=== PATIENT | male | born 1960 | race Caucasian/White ===

== ENCOUNTER 2020-09-13 12:27 | Inpatient (IN) | payer MEDICAID ==
[~2020-09-13] VITALS: Ht 177.8 cm; Wt 212.8 kg
[2020-09-13] MEDS ORDERED: DEXAMETHASONE 4 MG/ML, 1ML IVPush ONE (13:00)
[2020-09-13] MEDS ORDERED: SUCCINYLCHOLINE 20 MG/ML, 10ML IVPush ONE (13:00)
[2020-09-13] MEDS ORDERED: CEFTRIAXONE PMX 1GM/50ML 50 ML IVPB ONE (13:00)
[2020-09-13] MEDS ORDERED: ETOMIDATE 40 MG/20 ML IVPush ONE (13:00)
[2020-09-13] MEDS: PROPOFOL 100 ML IV PRN ×5 (13:02→22:01)
[2020-09-13] MEDS ORDERED: DEXAMETHASONE 4 MG/ML, 5ML ONE (13:03)
[2020-09-13] MEDS ORDERED: CEFTRIAXONE PMX 1GM/50ML 50 ML ONE ×2 (13:03→15:02)
[2020-09-13] MEDS: NOREPINEPHRINE 8 MG in SODIUM CHLORIDE 0.9% 242 ML IV PRN ×3 (13:13→20:09)
[2020-09-13 13:20] LABS: BASOPHILS % (AUTO) 1 % (0-1); EOSINOPHILS % (AUTO) 0 % (1-7); LYMPHOCYTES % (AUTO) 20 % (22-44); MEAN CORPUSCULAR HGB CONC 33.7 g/dL (33.2-36.2); MEAN PLATELET VOLUME 9.7 fL (7.4-10.4); MONOCYTES % (AUTO) 8 % (2-9); NEUTROPHILS % (AUTO) 72 % (42-75); PLATELET COUNT 189 x10^3/uL (130-400); RED BLOOD COUNT 5.33 x10^6/uL (4.38-5.82); RED CELL DISTRIBUTION WIDTH 16.8 % (9.4-14.8)
[2020-09-13 13:23] LABS: MD NO
[2020-09-13] MEDS ORDERED: NYST1000 PO (13:24)
[2020-09-13] MEDS ORDERED: FURO-93 PO (13:27)
[2020-09-13] MEDS ORDERED: PIOG15TA69 PO (13:27)
[2020-09-13] MEDS ORDERED: ALBU0.63 NEB (13:27)
[2020-09-13] MEDS ORDERED: INSU100C5 SQ-INSULIN (13:27)
[2020-09-13] MEDS ORDERED: TRAM100T33 PO (13:27)
[2020-09-13] MEDS ORDERED: ACETAMINOPHEN 650 MG SUPP PR ONE (13:30)
[2020-09-13 13:32] LABS: ALANINE AMINOTRANSFERASE 56 U/L (12-78); ALBUMIN 2.6 g/dL (3.4-5.0); ANION GAP 10 mmol/L (5-15); CALCIUM 7.8 mg/dL (8.5-10.1); CHLORIDE 104 mmol/L (98-107)
--- NOTE | 2020-09-13 13:34 | NUR ---
PATIENT BIB EMS FOR SOB. PT ON CPAP 20/04 AT HOME WITH A PEEP OF 22 50% SPO2 AND ALTERED. PT CAME IN AND WE INTUBATED WITH A 8.0 TUBE 24 AT THE LIP, 16 F OG TUBE PUT IN, 16 F MALDONADO CATH PUT IN WITH 200 URINE OUT. 18G IV PUT IN BY EMS, 20G IV PUT IN LEFT ABD. 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
[2020-09-13 13:39] LABS: ALKALINE PHOSPHATASE 61 U/L (45-117); BILIRUBIN,TOTAL 0.6 mg/dL (0.2-1.0); TOTAL PROTEIN 7.2 g/dL (6.4-8.2)
[2020-09-13 13:40] LABS: C-REACTIVE PROTEIN, QUANT > 19.00 mg/dL (0.02-0.49)
[2020-09-13 13:44] LABS: D-DIMER (DIC) 0.93 ug/mlFEU (0.00-0.52); PROTIME 12.7 Seconds (9.6-11.5)
--- NOTE | 2020-09-13 13:49 | NUR ---
MD GONS IN ROOM FOR CENTRAL LINE
[2020-09-13] MEDS ORDERED: ACETAMINOPHEN 650 MG SUPP ONE (14:02)
[2020-09-13] MEDS ORDERED: PROPOFOL 100 ML IV ONE (14:02)
[2020-09-13] MEDS: FENTANYL PF 1,000 MCG in SODIUM CHLORIDE 0.9% 80 ML IV PRN (14:17)
[2020-09-13] MEDS ORDERED: SODIUM CHLORIDE FLUSH 10ML SYR IVF PRN (14:30)
--- NOTE | 2020-09-13 14:55 | NUR ---
ASSUMED CARE OF PATIENT. REPORT GIVEN FROM ELYSSA CRUZ
--- NOTE | 2020-09-13 14:56 | NUR ---
[facility] AWARE [facility] VS. PT IS 89% ON VENT. MAP LESS THAN 65 LEVO STARTED. RT IN ROOM. WILL CONTINUE TO MONITOR.
[2020-09-13] MEDS ORDERED: ENOXAPARIN 40 MG/0.4 ML SQ SCH (15:00)
[2020-09-13] MEDS ORDERED: SENNA/DOCUSATE TABLET NG PRN (15:00)
[2020-09-13] MEDS ORDERED: LIDOCAINE-MPF 1%, 2ML ENDO PRN (15:00)
[2020-09-13] MEDS: CEFTRIAXONE PMX 1GM/50ML 50 ML IV SCH (15:00)
[2020-09-13] MEDS ORDERED: PHARMACY MAY ADJ FOR RENAL FX MC SCH (15:00)
[2020-09-13] MEDS ORDERED: SENNA 176 MG/5 ML ORAL SOL NG PRN (15:00)
[2020-09-13] MEDS ORDERED: BISACODYL 10 MG SUPP PR PRN (15:00)
--- NOTE | 2020-09-13 15:10 | NUR ---
BOTH BLOOD CULTURES DRAWN BEFORE ABX GIVEN
--- NOTE | 2020-09-13 16:00 | NUR ---
SPOKE WITH DR HOWARD ABOUT SEPSIS PROTOCOL.
--- NOTE | 2020-09-13 16:10 | NUR ---
PT TRANSFERRED TO CCU
[2020-09-13] MEDS ORDERED: ETOMIDATE 20 MG/10 ML ONE (16:30)
[2020-09-13] MEDS ORDERED: PROPOFOL 10 MG/ML, 100ML IV ONE (16:30)
[2020-09-13] MEDS ORDERED: SUCCINYLCHOLINE 20 MG/ML, 10ML ONE (16:30)
[2020-09-13] MEDS ORDERED: SODIUM CHLORIDE 0.9% 1,000ML IVBOLUS ONE ×2 (16:30→17:30)
[2020-09-13 16:37] VITALS: BP 81/42
[2020-09-13] MEDS ORDERED: GLUCAGON 1 MG IM PRN (17:00)
[2020-09-13] MEDS ORDERED: DEXTROSE 50%, 50ML SYRINGE IVPush PRN (17:00)
[2020-09-13] MEDS ORDERED: DEXTROSE 4 GM TAB.CHEW PO PRN (17:00)
[2020-09-13] MEDS: DOXYCYCLINE 100 MG in DEXTROSE 5% 250 ML IV SCH (17:15)
[2020-09-13] MEDS: ASCORBIC ACID 500 MG TABLET PO SCH (17:21)
[2020-09-13] MEDS: ENOXAPARIN 80 MG/0.8 ML SQ SCH (17:22)
[2020-09-13] MEDS: INSULIN GLARGINE 100 UNITS/ML, PEN SQ-INSULIN SCH (20:20)
[2020-09-13] MEDS: INSULIN LISPRO 100 UNITS/ML, PEN SQ-INSULIN SCH (20:20)
[2020-09-13] MEDS: SODIUM CHLORIDE FLUSH 10ML SYR IVF SCH (20:24)
[2020-09-13] MEDS ORDERED: INSULIN LISPRO 100 UNITS/ML, PEN SQ-INSULIN SCH (21:00)
[2020-09-14] MEDS: NOREPINEPHRINE 8 MG in SODIUM CHLORIDE 0.9% 242 ML IV PRN ×4 (00:59→18:29)
[2020-09-14] MEDS: PROPOFOL 100 ML IV PRN ×6 (01:11→23:00)
[2020-09-14] MEDS: FENTANYL PF 1,000 MCG in SODIUM CHLORIDE 0.9% 80 ML IV PRN ×2 (03:47→23:58)
[2020-09-14] MEDS: DOXYCYCLINE 100 MG in DEXTROSE 5% 250 ML IV SCH ×2 (03:52→15:26)
[2020-09-14] MEDS: INSULIN LISPRO 100 UNITS/ML, PEN SQ-INSULIN SCH ×4 (03:53→15:35)
[2020-09-14 04:52] LABS: BASOPHILS % (AUTO) 0 % (0-1); EOSINOPHILS % (AUTO) 0 % (1-7); LYMPHOCYTES % (AUTO) 8 % (22-44); MEAN CORPUSCULAR HEMOGLOBIN 28.3 pg (27.5-34.5); MEAN CORPUSCULAR HGB CONC 32.6 g/dL (33.2-36.2); MEAN PLATELET VOLUME 9.9 fL (7.4-10.4); MONOCYTES % (AUTO) 8 % (2-9); NEUTROPHILS % (AUTO) 84 % (42-75); PLATELET COUNT 250 x10^3/uL (130-400); RED BLOOD COUNT 5.26 x10^6/uL (4.38-5.82); RED CELL DISTRIBUTION WIDTH 17.4 % (9.4-14.8)
[2020-09-14 04:56] LABS: MD NO
[2020-09-14 05:03] LABS: ANION GAP 16 mmol/L (5-15); CHLORIDE 103 mmol/L (98-107)
[2020-09-14 05:08] LABS: BILIRUBIN,TOTAL 0.8 mg/dL (0.2-1.0); CALCIUM 7.9 mg/dL (8.5-10.1); CREATININE 3.71 mg/dL (0.7-1.3)
[2020-09-14] MEDS ORDERED: DEXAMETHASONE 4 MG/ML, 1ML IVPush SCH (09:00)
[2020-09-14] MEDS: THIAMINE 100MG TABLET PO SCH (09:09)
[2020-09-14] MEDS: DEXAMETHASONE 4 MG/ML, 1ML IVPush SCH (09:09)
[2020-09-14] MEDS: PANTOPRAZOLE 40 MG IV IV SCH (09:09)
[2020-09-14] MEDS: CHOLECALCIFEROL 5,000u TAB PO SCH (09:09)
[2020-09-14] MEDS: ASCORBIC ACID 500 MG TABLET PO SCH ×2 (09:09→16:41)
[2020-09-14] MEDS: ZINC SULFATE 220 MG CAPSULE PO SCH (09:09)
[2020-09-14] MEDS: SODIUM CHLORIDE FLUSH 10ML SYR IVF SCH ×2 (09:10→19:51)
[2020-09-14] MEDS: INSULIN GLARGINE 100 UNITS/ML, PEN SQ-INSULIN SCH (09:14)
[2020-09-14] MEDS ORDERED: INSULIN GLARGINE 100 UNITS/ML, PEN SQ-INSULIN SCH ×2 (09:30→21:00)
[2020-09-14 14:11] LABS: ANION GAP 19 mmol/L (5-15); CALCIUM 7.7 mg/dL (8.5-10.1); CHLORIDE 106 mmol/L (98-107); CREATININE 3.66 mg/dL (0.7-1.3)
[2020-09-14 14:20] LABS: RAPID INFLUENZA A Negative (Negative); RAPID INFLUENZA B Negative (Negative)
[2020-09-14] MEDS ORDERED: INSULIN LISPRO 100 UNITS/ML, PEN SQ-INSULIN ONE (14:30)
[2020-09-14] MEDS ORDERED: INSULIN GLARGINE 100 UNITS/ML, PEN SQ-INSULIN ONE (14:30)
[2020-09-14] MEDS: CEFTRIAXONE PMX 1GM/50ML 50 ML IV SCH (16:36)
[2020-09-14] MEDS: ENOXAPARIN 80 MG/0.8 ML SQ SCH (16:41)
[2020-09-14] MEDS: REGULAR INSULIN 100 UNITS in SODIUM CHLORIDE 0.9% 99 ML IV PRN (17:36)
[2020-09-14] MEDS: ACETAMINOPHEN 650 MG/20.3 ML UDC PO PRN (22:59)
[2020-09-15] MEDS: NOREPINEPHRINE 8 MG in SODIUM CHLORIDE 0.9% 242 ML IV PRN ×3 (01:17→17:19)
[2020-09-15] MEDS: REGULAR INSULIN 100 UNITS in SODIUM CHLORIDE 0.9% 99 ML IV PRN ×7 (02:09→23:10)
[2020-09-15] MEDS: PROPOFOL 100 ML IV PRN ×5 (02:12→23:10)
[2020-09-15] MEDS: DOXYCYCLINE 100 MG in SODIUM CHLORIDE 0.9% 250 ML IV SCH ×2 (03:09→14:20)
[2020-09-15 03:44] LABS: BASOPHILS % (AUTO) 1 % (0-1); EOSINOPHILS % (AUTO) 0 % (1-7); LYMPHOCYTES % (AUTO) 5 % (22-44); MEAN CORPUSCULAR HEMOGLOBIN 28.2 pg (27.5-34.5); MONOCYTES % (AUTO) 6 % (2-9); NEUTROPHILS % (AUTO) 89 % (42-75); PLATELET COUNT 267 x10^3/uL (130-400); RED BLOOD COUNT 5.04 x10^6/uL (4.38-5.82); RED CELL DISTRIBUTION WIDTH 17.3 % (9.4-14.8)
[2020-09-15 03:53] LABS: ANION GAP 12 mmol/L (5-15); CALCIUM 7.9 mg/dL (8.5-10.1); CHLORIDE 109 mmol/L (98-107); CREATININE 3.78 mg/dL (0.7-1.3)
[2020-09-15 03:54] LABS: BILIRUBIN,TOTAL 0.7 mg/dL (0.2-1.0)
[2020-09-15 04:04] LABS: MD NO
[2020-09-15] MEDS ORDERED: PHARMACY INSTRUCTION MC PRN (08:00)
[2020-09-15] MEDS ORDERED: REMDESIVIR 100 MG in SODIUM CHLORIDE 0.9% 250 ML IVPB ONE (08:00)
[2020-09-15] MEDS: ZINC SULFATE 220 MG CAPSULE PO SCH (08:26)
[2020-09-15] MEDS: PANTOPRAZOLE 40 MG IV IV SCH (08:26)
[2020-09-15] MEDS: ASCORBIC ACID 500 MG TABLET PO SCH ×2 (08:26→17:02)
[2020-09-15] MEDS: DEXAMETHASONE 4 MG/ML, 1ML IVPush SCH (08:27)
[2020-09-15] MEDS: CHOLECALCIFEROL 5,000u TAB PO SCH (08:28)
[2020-09-15] MEDS: SODIUM CHLORIDE FLUSH 10ML SYR IVF SCH ×2 (08:28→21:05)
[2020-09-15] MEDS: THIAMINE 100MG TABLET PO SCH (08:41)
[2020-09-15] MEDS ORDERED: HEPARIN 5,000 UNITS/ML, 1ML IV PRN (10:00)
[2020-09-15] MEDS ORDERED: HEPARIN 5,000 UNITS/ML, 1ML IV ONE (10:00)
[2020-09-15] MEDS: HEPARIN 25,000 UNITS/250ML PMX 250 ML IV PRN (12:28)
[2020-09-15] MEDS: CEFTRIAXONE PMX 1GM/50ML 50 ML IV SCH (15:30)
[2020-09-15] MEDS: ACETAMINOPHEN 650 MG/20.3 ML UDC PO PRN (19:09)
[2020-09-15] MEDS: FENTANYL PF 1,000 MCG in SODIUM CHLORIDE 0.9% 80 ML IV PRN (22:29)
[2020-09-16] MEDS: REGULAR INSULIN 100 UNITS in SODIUM CHLORIDE 0.9% 99 ML IV PRN ×6 (01:36→21:53)
[2020-09-16] MEDS: NOREPINEPHRINE 8 MG in SODIUM CHLORIDE 0.9% 242 ML IV PRN ×2 (01:37→10:44)
[2020-09-16] MEDS: HEPARIN 25,000 UNITS/250ML PMX 250 ML IV PRN ×2 (02:01→17:40)
[2020-09-16] MEDS: ACETAMINOPHEN 650 MG/20.3 ML UDC PO PRN ×2 (02:09→10:46)
[2020-09-16] MEDS: DOXYCYCLINE 100 MG in SODIUM CHLORIDE 0.9% 250 ML IV SCH ×2 (02:46→14:35)
[2020-09-16 03:01] LABS: INTERNATIONAL NORMALIZED RATIO 1.14 (0.93-1.1); PROTHROMBIN TIME 12.1 Seconds (9.6-11.5)
[2020-09-16] MEDS: PROPOFOL 100 ML IV PRN ×4 (04:18→18:57)
[2020-09-16 04:45] LABS: ANION GAP 8 mmol/L (5-15); CALCIUM 7.5 mg/dL (8.5-10.1); CHLORIDE 116 mmol/L (98-107); TRIGLYCERIDES 343 mg/dL (50-200)
[2020-09-16 04:46] LABS: BASOPHILS % (AUTO) 0 % (0-1); BILIRUBIN,TOTAL 0.6 mg/dL (0.2-1.0); EOSINOPHILS % (AUTO) 0 % (1-7); LYMPHOCYTES % (AUTO) 8 % (22-44); MEAN CORPUSCULAR HEMOGLOBIN 27.7 pg (27.5-34.5); MEAN CORPUSCULAR HGB CONC 32.9 g/dL (33.2-36.2); MEAN PLATELET VOLUME 8.9 fL (7.4-10.4); MONOCYTES % (AUTO) 8 % (2-9); NEUTROPHILS % (AUTO) 84 % (42-75); PLATELET COUNT 248 x10^3/uL (130-400); RED BLOOD COUNT 5.09 x10^6/uL (4.38-5.82); RED CELL DISTRIBUTION WIDTH 16.8 % (9.4-14.8)
[2020-09-16 06:40] LABS: MD SCAN
[2020-09-16] MEDS: PANTOPRAZOLE 40 MG IV IV SCH (08:42)
[2020-09-16] MEDS: DEXAMETHASONE 4 MG/ML, 1ML IVPush SCH (08:42)
[2020-09-16] MEDS: THIAMINE 100MG TABLET PO SCH (08:42)
[2020-09-16] MEDS: CHOLECALCIFEROL 5,000u TAB PO SCH (08:42)
[2020-09-16] MEDS: ZINC SULFATE 220 MG CAPSULE PO SCH (08:42)
[2020-09-16] MEDS: ASCORBIC ACID 500 MG TABLET PO SCH ×2 (08:42→16:41)
[2020-09-16] MEDS: SODIUM CHLORIDE FLUSH 10ML SYR IVF SCH ×2 (08:43→21:32)
[2020-09-16] MEDS ORDERED: POTASSIUM CHLORIDE 20 MEQ PACKET PO ONE (10:00)
[2020-09-16] MEDS: FENTANYL PF 1,000 MCG in SODIUM CHLORIDE 0.9% 80 ML IV PRN (10:12)
[2020-09-16 11:03] LABS: ALANINE AMINOTRANSFERASE 41 U/L (12-78); ANION GAP 9 mmol/L (5-15); CALCIUM 7.5 mg/dL (8.5-10.1); CHLORIDE 117 mmol/L (98-107)
[2020-09-16 11:05] LABS: ALKALINE PHOSPHATASE 63 U/L (45-117); BILIRUBIN,TOTAL 0.5 mg/dL (0.2-1.0); CREATININE 2.75 mg/dL (0.7-1.3); TOTAL PROTEIN 6.4 g/dL (6.4-8.2)
[2020-09-16] MEDS: CEFTRIAXONE PMX 1GM/50ML 50 ML IV SCH (14:37)
[2020-09-17] MEDS: FENTANYL PF 1,000 MCG in SODIUM CHLORIDE 0.9% 80 ML IV PRN ×3 (00:48→23:55)
[2020-09-17] MEDS: DOXYCYCLINE 100 MG in SODIUM CHLORIDE 0.9% 250 ML IV SCH (02:01)
[2020-09-17] MEDS: REGULAR INSULIN 100 UNITS in SODIUM CHLORIDE 0.9% 99 ML IV PRN ×4 (02:12→17:08)
[2020-09-17] MEDS: PROPOFOL 100 ML IV PRN ×4 (03:02→17:11)
[2020-09-17 04:17] LABS: BASOPHILS % (AUTO) 0 % (0-1); EOSINOPHILS % (AUTO) 0 % (1-7); LYMPHOCYTES % (AUTO) 6 % (22-44); MEAN CORPUSCULAR HEMOGLOBIN 27.9 pg (27.5-34.5); MEAN CORPUSCULAR HGB CONC 32.6 g/dL (33.2-36.2); MONOCYTES % (AUTO) 7 % (2-9); NEUTROPHILS % (AUTO) 87 % (42-75); PLATELET COUNT 179 x10^3/uL (130-400); RED BLOOD COUNT 4.64 x10^6/uL (4.38-5.82); RED CELL DISTRIBUTION WIDTH 16.8 % (9.4-14.8)
[2020-09-17 04:23] LABS: ANION GAP 6 mmol/L (5-15); CALCIUM 7.1 mg/dL (8.5-10.1); CHLORIDE 117 mmol/L (98-107)
[2020-09-17 04:27] LABS: BILIRUBIN,TOTAL 0.6 mg/dL (0.2-1.0); CREATININE 2.45 mg/dL (0.7-1.3)
[2020-09-17 04:36] LABS: D-DIMER 1.16 ug/mlFEU (0.00-0.52)
[2020-09-17 05:57] LABS: MD SCAN
[2020-09-17] MEDS ORDERED: REMDESIVIR 50 MG in SODIUM CHLORIDE 0.9% 250 ML IVPB SCH (08:00)
[2020-09-17] MEDS ORDERED: FUROSEMIDE 40 MG/4 ML IV ONE (08:30)
[2020-09-17] MEDS: PANTOPRAZOLE 40 MG IV IV SCH (08:36)
[2020-09-17] MEDS: DEXAMETHASONE 4 MG/ML, 1ML IVPush SCH (08:36)
[2020-09-17] MEDS: CHOLECALCIFEROL 5,000u TAB PO SCH (08:37)
[2020-09-17] MEDS: THIAMINE 100MG TABLET PO SCH (08:37)
[2020-09-17] MEDS: ZINC SULFATE 220 MG CAPSULE PO SCH (08:37)
[2020-09-17] MEDS: ASCORBIC ACID 500 MG TABLET PO SCH ×2 (08:37→17:09)
[2020-09-17] MEDS: SODIUM CHLORIDE FLUSH 10ML SYR IVF SCH ×2 (09:09→20:05)
[2020-09-17] MEDS: HEPARIN 25,000 UNITS/250ML PMX 250 ML IV PRN (09:14)
[2020-09-17] MEDS: NOREPINEPHRINE 8 MG in SODIUM CHLORIDE 0.9% 242 ML IV PRN (11:12)
[2020-09-17] MEDS: DEXMEDETOMIDINE 400 MCG in SODIUM CHLORIDE 0.9% 96 ML IV PRN ×2 (11:15→17:09)
--- NOTE | 2020-09-17 13:33 | NUR ---
Trickle Tube feeds: Vital HP start at 10 ml/hr.monitor tolerance to trickle feeds. Addendum: 09/17/20 at [address] Amended: Links added.
[2020-09-17] MEDS ORDERED: AZITHROMYCIN 500 MG in SODIUM CHLORIDE 0.9% 250 ML IV ONE (14:00)
[2020-09-17] MEDS: CEFTRIAXONE PMX 1GM/50ML 50 ML IV SCH (15:01)
[2020-09-17] MEDS: ACETAMINOPHEN 650 MG/20.3 ML UDC PO PRN ×2 (15:18→21:32)
[2020-09-17] MEDS: REGULAR INSULIN 250 UNITS in SODIUM CHLORIDE 0.9% 247.5 ML IV PRN (21:49)
[2020-09-18] MEDS: HEPARIN 25,000 UNITS/250ML PMX 250 ML IV PRN ×2 (00:27→18:35)
[2020-09-18] MEDS: DEXMEDETOMIDINE 400 MCG in SODIUM CHLORIDE 0.9% 96 ML IV PRN ×5 (02:14→20:24)
[2020-09-18 04:42] LABS: MEAN CORPUSCULAR HEMOGLOBIN 27.5 pg (27.5-34.5); MEAN CORPUSCULAR HGB CONC 32.4 g/dL (33.2-36.2); PLATELET COUNT 188 x10^3/uL (130-400); RED BLOOD COUNT 4.74 x10^6/uL (4.38-5.82); RED CELL DISTRIBUTION WIDTH 16.6 % (9.4-14.8)
[2020-09-18 04:54] LABS: CHLORIDE 118 mmol/L (98-107)
[2020-09-18 05:02] LABS: ALANINE AMINOTRANSFERASE 35 U/L (12-78); ALBUMIN 1.7 g/dL (3.4-5.0); ALKALINE PHOSPHATASE 60 U/L (45-117); ANION GAP 7 mmol/L (5-15); BILIRUBIN,TOTAL 0.5 mg/dL (0.2-1.0); CALCIUM 7.7 mg/dL (8.5-10.1); CREATININE 2.57 mg/dL (0.7-1.3); TOTAL PROTEIN 5.9 g/dL (6.4-8.2)
[2020-09-18 05:48] LABS: MD YES
[2020-09-18 05:50] LABS: BAND#(MANUAL) 0.36 x10^3/uL; BANDS%(MANUAL) 3 % (0-7); LYMPH#(MANUAL) 1.07 x10^3/uL (1-3.4); LYMPHS% (MANUAL) 9 % (22-44); METAMYELOCYTES# (MANUAL) 0.48 x10^3/uL (0-0); METAMYELOCYTES% (MANUAL) 4 % (0-1); MONOS% (MANUAL) 5 % (2-9); SEGS% (MANUAL) 79 % (42-75)
[2020-09-18 05:51] LABS: <PLATELET ESTIMATE> ADEQUATE; GIANT PLATELETS 1+; LARGE PLATELETS 1+; POLYCHROMASIA 1+
[2020-09-18 05:52] LABS: ANISOCYTOSIS 1+
[2020-09-18] MEDS: CHOLECALCIFEROL 5,000u TAB PO SCH (08:31)
[2020-09-18] MEDS: THIAMINE 100MG TABLET PO SCH (08:33)
[2020-09-18] MEDS: ASCORBIC ACID 500 MG TABLET PO SCH ×2 (08:34→16:44)
[2020-09-18] MEDS: ZINC SULFATE 220 MG CAPSULE PO SCH (08:38)
[2020-09-18] MEDS: DEXAMETHASONE 4 MG/ML, 1ML IVPush SCH (08:41)
[2020-09-18] MEDS: PANTOPRAZOLE 40 MG IV IV SCH (08:41)
[2020-09-18] MEDS: SODIUM CHLORIDE FLUSH 10ML SYR IVF SCH ×2 (08:42→20:24)
[2020-09-18] MEDS ORDERED: FUROSEMIDE 40 MG/4 ML IV ONE (09:00)
[2020-09-18] MEDS: REMDESIVIR 100 MG in SODIUM CHLORIDE 0.9% 250 ML IVPB SCH (10:13)
[2020-09-18] MEDS: FENTANYL PF 1,000 MCG in SODIUM CHLORIDE 0.9% 80 ML IV PRN ×2 (10:14→18:36)
[2020-09-18] MEDS: CEFTRIAXONE PMX 1GM/50ML 50 ML IV SCH ×2 (15:20→15:28)
[2020-09-18] MEDS: ACETAMINOPHEN 650 MG/20.3 ML UDC PO PRN (15:21)
[2020-09-18] MEDS ORDERED: REMDESIVIR 100 MG in SODIUM CHLORIDE 0.9% 250 ML IVPB SCH (17:00)
[2020-09-19] MEDS: DEXMEDETOMIDINE 400 MCG in SODIUM CHLORIDE 0.9% 96 ML IV PRN ×6 (01:31→22:37)
[2020-09-19] MEDS: REGULAR INSULIN 250 UNITS in SODIUM CHLORIDE 0.9% 247.5 ML IV PRN (01:31)
[2020-09-19 04:10] LABS: BASOPHILS % (AUTO) 0 % (0-1); EOSINOPHILS % (AUTO) 0 % (1-7); LYMPHOCYTES % (AUTO) 8 % (22-44); MEAN CORPUSCULAR HEMOGLOBIN 27.4 pg (27.5-34.5); MEAN CORPUSCULAR HGB CONC 32.3 g/dL (33.2-36.2); MEAN PLATELET VOLUME 10.3 fL (7.4-10.4); MONOCYTES % (AUTO) 7 % (2-9); NEUTROPHILS % (AUTO) 84 % (42-75); PLATELET COUNT 186 x10^3/uL (130-400); RED BLOOD COUNT 4.78 x10^6/uL (4.38-5.82); RED CELL DISTRIBUTION WIDTH 16.5 % (9.4-14.8)
[2020-09-19 04:11] LABS: ALANINE AMINOTRANSFERASE 35 U/L (12-78); ALBUMIN 1.6 g/dL (3.4-5.0); ANION GAP 6 mmol/L (5-15); CALCIUM 7.8 mg/dL (8.5-10.1); CHLORIDE 122 mmol/L (98-107)
[2020-09-19 04:14] LABS: ALKALINE PHOSPHATASE 62 U/L (45-117); BILIRUBIN,TOTAL 0.4 mg/dL (0.2-1.0); CREATININE 2.48 mg/dL (0.7-1.3); TRIGLYCERIDES 252 mg/dL (50-200)
[2020-09-19] MEDS: FENTANYL PF 1,000 MCG in SODIUM CHLORIDE 0.9% 80 ML IV PRN ×2 (04:35→14:24)
[2020-09-19 05:05] LABS: MD SCAN
[2020-09-19] MEDS: INSULIN GLARGINE 100 UNITS/ML, PEN SQ-INSULIN SCH ×3 (06:53→20:05)
[2020-09-19] MEDS: INSULIN LISPRO 100 UNITS/ML, PEN SQ-INSULIN SCH ×3 (06:53→18:29)
[2020-09-19] MEDS ORDERED: INSULIN LISPRO 100 UNITS/ML, PEN SQ-INSULIN SCH (07:00)
[2020-09-19] MEDS ORDERED: FUROSEMIDE 40 MG/4 ML IV ONE (08:30)
[2020-09-19] MEDS ORDERED: INSULIN GLARGINE 100 UNITS/ML, PEN SQ-INSULIN SCH (09:00)
[2020-09-19] MEDS ORDERED: DEXAMETHASONE 4 MG/ML, 1ML IVPush ONE (09:30)
[2020-09-19] MEDS: REMDESIVIR 100 MG in SODIUM CHLORIDE 0.9% 250 ML IVPB SCH (09:37)
[2020-09-19] MEDS: SODIUM CHLORIDE FLUSH 10ML SYR IVF SCH ×2 (09:39→20:04)
[2020-09-19] MEDS: ASCORBIC ACID 500 MG TABLET PO SCH ×2 (09:45→16:44)
[2020-09-19] MEDS: PANTOPRAZOLE 40 MG IV IV SCH (09:48)
[2020-09-19] MEDS: THIAMINE 100MG TABLET PO SCH (09:49)
[2020-09-19] MEDS: CHOLECALCIFEROL 5,000u TAB PO SCH (09:49)
[2020-09-19] MEDS: ZINC SULFATE 220 MG CAPSULE PO SCH (09:49)
[2020-09-19] MEDS: HEPARIN 25,000 UNITS/250ML PMX 250 ML IV PRN (10:15)
[2020-09-19] MEDS: CEFTRIAXONE PMX 1GM/50ML 50 ML IV SCH (15:01)
[2020-09-19] MEDS: LACTULOSE 20 GM/30 ML UDC NG PRN (16:44)
[2020-09-19] MEDS: ACETAMINOPHEN 650 MG/20.3 ML UDC PO PRN ×2 (19:20→23:22)
[2020-09-20] MEDS: FENTANYL PF 1,000 MCG in SODIUM CHLORIDE 0.9% 80 ML IV PRN ×2 (00:55→11:23)
[2020-09-20] MEDS: INSULIN LISPRO 100 UNITS/ML, PEN SQ-INSULIN SCH ×5 (01:44→19:26)
[2020-09-20 02:04] LABS: MEAN PLATELET VOLUME 10.7 fL (7.4-10.4); PLATELET COUNT 186 x10^3/uL (130-400); RED BLOOD COUNT 4.54 x10^6/uL (4.38-5.82); RED CELL DISTRIBUTION WIDTH 16.2 % (9.4-14.8)
[2020-09-20 02:13] LABS: BILIRUBIN,TOTAL 0.4 mg/dL (0.2-1.0)
[2020-09-20] MEDS: DEXMEDETOMIDINE 400 MCG in SODIUM CHLORIDE 0.9% 96 ML IV PRN ×2 (02:28→11:05)
[2020-09-20 02:43] LABS: MD YES
[2020-09-20 02:46] LABS: BAND#(MANUAL) 0.38 x10^3/uL; BANDS%(MANUAL) 4 % (0-7); LYMPH#(MANUAL) 0.86 x10^3/uL (1-3.4); LYMPHS% (MANUAL) 9 % (22-44); METAMYELOCYTES# (MANUAL) 0.29 x10^3/uL (0-0); METAMYELOCYTES% (MANUAL) 3 % (0-1); MONOS#(MANUAL) 0.86 x10^3/uL (0.3-2.7); MONOS% (MANUAL) 9 % (2-9); MYELOCYTES# (MANUAL) 0.19 x10^3/uL (0-0); MYELOCYTES% (MANUAL) 2 % (0-0); REACTIVE LYMPHS % (MANUAL) 1 % (0-0); SEG#(MANUAL) 6.84 x10^3/uL (1.8-6.8); SEGS% (MANUAL) 72 % (42-75)
[2020-09-20 02:47] LABS: <PLATELET ESTIMATE> ADEQUATE; ANISOCYTOSIS 1+; LARGE PLATELETS 1+; OVALOCYTES 1+; POLYCHROMASIA 1+
[2020-09-20] MEDS: HEPARIN 25,000 UNITS/250ML PMX 250 ML IV PRN ×2 (02:48→18:01)
[2020-09-20 03:22] LABS: ANION GAP 7 mmol/L (5-15); CALCIUM 8.6 mg/dL (8.5-10.1); CHLORIDE 118 mmol/L (98-107); CREATININE 2.76 mg/dL (0.7-1.3)
[2020-09-20] MEDS: ACETAMINOPHEN 650 MG/20.3 ML UDC PO PRN ×3 (03:26→21:18)
[2020-09-20 05:50] LABS: FIO2 70 %
[2020-09-20] MEDS ORDERED: INSULIN LISPRO 100 UNITS/ML, PEN SQ-INSULIN SCH (07:00)
[2020-09-20] MEDS: CHOLECALCIFEROL 5,000u TAB PO SCH (09:29)
[2020-09-20] MEDS: MEROPENEM 1 GM in SODIUM CHLORIDE 0.9% 100 ML IV SCH ×2 (09:30→21:16)
[2020-09-20] MEDS: ASCORBIC ACID 500 MG TABLET PO SCH ×2 (09:30→16:02)
[2020-09-20] MEDS: PANTOPRAZOLE 40 MG IV IV SCH (09:30)
[2020-09-20] MEDS: THIAMINE 100MG TABLET PO SCH (09:30)
[2020-09-20] MEDS: LINEZOLID 600 MG TABLET PO SCH ×2 (09:30→21:21)
[2020-09-20] MEDS: SODIUM CHLORIDE FLUSH 10ML SYR IVF SCH ×2 (09:31→21:18)
[2020-09-20] MEDS: ZINC SULFATE 220 MG CAPSULE PO SCH (09:31)
[2020-09-20] MEDS: INSULIN GLARGINE 100 UNITS/ML, PEN SQ-INSULIN SCH ×2 (09:49→21:21)
--- NOTE | 2020-09-20 12:00 | NUR ---
Vital high protein: goal: 55 m/hr on propofol, 70 ml/hr off propofol Addendum: 09/20/20 at [address] Amended: Links added.
[2020-09-20] MEDS: DEXMEDETOMIDINE 1,000 MCG in SODIUM CHLORIDE 0.9% 240 ML IV PRN (15:10)
[2020-09-20] MEDS: LACTULOSE 20 GM/30 ML UDC NG PRN (16:01)
[2020-09-20] MEDS: FENTANYL PF 2,500 MCG in SODIUM CHLORIDE 0.9% 200 ML IV PRN (21:18)
[2020-09-21] MEDS: INSULIN LISPRO 100 UNITS/ML, PEN SQ-INSULIN SCH ×6 (00:10→20:34)
[2020-09-21] MEDS: DEXMEDETOMIDINE 1,000 MCG in SODIUM CHLORIDE 0.9% 240 ML IV PRN (00:11)
[2020-09-21] MEDS: ACETAMINOPHEN 650 MG/20.3 ML UDC PO PRN ×2 (01:37→20:35)
[2020-09-21 04:54] LABS: MEAN CORPUSCULAR HGB CONC 32.1 g/dL (33.2-36.2); MEAN PLATELET VOLUME 11.2 fL (7.4-10.4); PLATELET COUNT 193 x10^3/uL (130-400); RED BLOOD COUNT 4.69 x10^6/uL (4.38-5.82); RED CELL DISTRIBUTION WIDTH 16.3 % (9.4-14.8)
[2020-09-21 05:13] LABS: BILIRUBIN,TOTAL 0.5 mg/dL (0.2-1.0)
[2020-09-21 05:52] LABS: MD YES
[2020-09-21 05:55] LABS: BAND#(MANUAL) 0.67 x10^3/uL; BANDS%(MANUAL) 6 % (0-7); EOS#(MANUAL) 0.11 x10^3/uL (0.0-0.4); EOS% (MANUAL) 1 % (1-7); LYMPH#(MANUAL) 2.24 x10^3/uL (1-3.4); LYMPHS% (MANUAL) 20 % (22-44); METAMYELOCYTES# (MANUAL) 0.22 x10^3/uL (0-0); METAMYELOCYTES% (MANUAL) 2 % (0-1); MONOS#(MANUAL) 0.56 x10^3/uL (0.3-2.7); MONOS% (MANUAL) 5 % (2-9); MYELOCYTES# (MANUAL) 0.11 x10^3/uL (0-0); MYELOCYTES% (MANUAL) 1 % (0-0); REACTIVE LYMPHS # (MANUAL) 0.11 x10^3/uL (0-0); REACTIVE LYMPHS % (MANUAL) 1 % (0-0); SEG#(MANUAL) 7.17 x10^3/uL (1.8-6.8); SEGS% (MANUAL) 64 % (42-75)
[2020-09-21 05:56] LABS: <PLATELET ESTIMATE> ADEQUATE; ANISOCYTOSIS 1+; OVALOCYTES 1+; POLYCHROMASIA 1+
[2020-09-21 05:57] LABS: LARGE PLATELETS 1+
[2020-09-21] MEDS ORDERED: ALBUTEROL/IPRATROPIUM 2.5MG/0.5MG, 3 ML NEB ONE (06:00)
[2020-09-21 07:24] LABS: ANION GAP 6 mmol/L (5-15); CALCIUM 8.8 mg/dL (8.5-10.1); CHLORIDE 119 mmol/L (98-107)
[2020-09-21] MEDS ORDERED: FUROSEMIDE 40 MG/4 ML IV ONE (08:30)
[2020-09-21] MEDS: ZINC SULFATE 220 MG CAPSULE PO SCH (09:02)
[2020-09-21] MEDS: CHOLECALCIFEROL 5,000u TAB PO SCH (09:02)
[2020-09-21] MEDS: ASCORBIC ACID 500 MG TABLET PO SCH ×2 (09:02→15:43)
[2020-09-21] MEDS: LINEZOLID 600 MG TABLET PO SCH ×2 (09:02→20:35)
[2020-09-21] MEDS: PANTOPRAZOLE 40 MG IV IV SCH (09:02)
[2020-09-21] MEDS: THIAMINE 100MG TABLET PO SCH (09:02)
[2020-09-21] MEDS: SODIUM CHLORIDE FLUSH 10ML SYR IVF SCH ×2 (09:03→20:35)
[2020-09-21] MEDS: MEROPENEM 1 GM in SODIUM CHLORIDE 0.9% 100 ML IV SCH ×2 (09:03→20:34)
[2020-09-21] MEDS: INSULIN GLARGINE 100 UNITS/ML, PEN SQ-INSULIN SCH ×2 (09:04→20:35)
[2020-09-21] MEDS: PROPOFOL 100 ML IV PRN ×4 (09:07→23:31)
[2020-09-21] MEDS: HEPARIN 25,000 UNITS/250ML PMX 250 ML IV PRN (09:21)
[2020-09-21] MEDS: METHYLNALTREXONE 12 MG/0.6 ML SYR SQ SCH (11:51)
[2020-09-21] MEDS ORDERED: METOPROLOL 1 MG/ML, 5ML IVPush PRN ×2 (14:00)
[2020-09-21] MEDS: MAGNESIUM HYDROXIDE 8%, 30ML UDC PO SCH (20:35)
[2020-09-22] MEDS: INSULIN LISPRO 100 UNITS/ML, PEN SQ-INSULIN SCH ×6 (00:11→20:14)
[2020-09-22] MEDS: HEPARIN 25,000 UNITS/250ML PMX 250 ML IV PRN (01:26)
[2020-09-22] MEDS: ACETAMINOPHEN 650 MG/20.3 ML UDC PO PRN ×4 (01:26→20:08)
[2020-09-22] MEDS: PROPOFOL 100 ML IV PRN ×5 (02:42→22:46)
[2020-09-22 04:23] LABS: BILIRUBIN,TOTAL 0.5 mg/dL (0.2-1.0)
[2020-09-22 04:26] LABS: MEAN CORPUSCULAR HEMOGLOBIN 27.5 pg (27.5-34.5); MEAN CORPUSCULAR HGB CONC 31.7 g/dL (33.2-36.2); MEAN PLATELET VOLUME 11.6 fL (7.4-10.4); PLATELET COUNT 175 x10^3/uL (130-400); RED BLOOD COUNT 4.56 x10^6/uL (4.38-5.82); RED CELL DISTRIBUTION WIDTH 16.3 % (9.4-14.8)
[2020-09-22 05:15] LABS: MD YES
[2020-09-22 05:17] LABS: BAND#(MANUAL) 0.44 x10^3/uL; BANDS%(MANUAL) 3 % (0-7); EOS#(MANUAL) 0.29 x10^3/uL (0.0-0.4); EOS% (MANUAL) 2 % (1-7); LYMPH#(MANUAL) 1.45 x10^3/uL (1-3.4); LYMPHS% (MANUAL) 10 % (22-44); METAMYELOCYTES# (MANUAL) 0.29 x10^3/uL (0-0); METAMYELOCYTES% (MANUAL) 2 % (0-1); MONOS#(MANUAL) 0.87 x10^3/uL (0.3-2.7); MONOS% (MANUAL) 6 % (2-9); MYELOCYTES# (MANUAL) 0.15 x10^3/uL (0-0); MYELOCYTES% (MANUAL) 1 % (0-0); OVALOCYTES 1+; POLYCHROMASIA 1+; SEG#(MANUAL) 11.02 x10^3/uL (1.8-6.8); SEGS% (MANUAL) 76 % (42-75)
[2020-09-22 05:18] LABS: <PLATELET ESTIMATE> ADEQUATE; LARGE PLATELETS 1+
[2020-09-22 05:26] LABS: ANION GAP 6 mmol/L (5-15); CALCIUM 8.8 mg/dL (8.5-10.1); CHLORIDE 118 mmol/L (98-107)
[2020-09-22 05:27] LABS: CREATININE 3.73 mg/dL (0.7-1.3)
[2020-09-22] MEDS ORDERED: PANTOPRAZOLE 40MG TABLET PO SCH (06:00)
[2020-09-22] MEDS ORDERED: MAGNESIUM CITRATE 300ML ORAL SOL PO ONE (08:30)
[2020-09-22] MEDS: FENTANYL PF 2,500 MCG in SODIUM CHLORIDE 0.9% 200 ML IV PRN (08:59)
[2020-09-22] MEDS: THIAMINE 100MG TABLET PO SCH (09:00)
[2020-09-22] MEDS: MAGNESIUM HYDROXIDE 8%, 30ML UDC PO SCH ×2 (09:00→20:07)
[2020-09-22] MEDS: MEROPENEM 1 GM in SODIUM CHLORIDE 0.9% 100 ML IV SCH ×2 (09:00→20:08)
[2020-09-22] MEDS: ZINC SULFATE 220 MG CAPSULE PO SCH (09:00)
[2020-09-22] MEDS: PANTOPRAZOLE 40 MG IV IV SCH (09:00)
[2020-09-22] MEDS: SODIUM CHLORIDE FLUSH 10ML SYR IVF SCH ×2 (09:00→20:08)
[2020-09-22] MEDS: CHOLECALCIFEROL 5,000u TAB PO SCH (09:00)
[2020-09-22] MEDS: ASCORBIC ACID 500 MG TABLET PO SCH ×2 (09:00→15:52)
[2020-09-22] MEDS: LINEZOLID 600 MG TABLET PO SCH ×2 (09:00→20:08)
[2020-09-22] MEDS: NOREPINEPHRINE 8 MG in SODIUM CHLORIDE 0.9% 242 ML IV PRN ×2 (09:17→20:07)
[2020-09-22] MEDS: INSULIN GLARGINE 100 UNITS/ML, PEN SQ-INSULIN SCH ×2 (09:20→20:15)
[2020-09-22] MEDS: ENOXAPARIN 30 MG/0.3 ML SQ SCH (13:36)
[2020-09-23] MEDS: INSULIN LISPRO 100 UNITS/ML, PEN SQ-INSULIN SCH ×2 (00:09→03:26)
[2020-09-23] MEDS: PROPOFOL 100 ML IV PRN ×3 (02:01→22:13)
[2020-09-23] MEDS: NOREPINEPHRINE 8 MG in SODIUM CHLORIDE 0.9% 242 ML IV PRN (03:27)
[2020-09-23] MEDS: ACETAMINOPHEN 650 MG/20.3 ML UDC PO PRN ×3 (03:28→19:52)
[2020-09-23 03:43] LABS: MEAN CORPUSCULAR HEMOGLOBIN 27.7 pg (27.5-34.5); MEAN CORPUSCULAR HGB CONC 31.9 g/dL (33.2-36.2); MEAN PLATELET VOLUME 11.3 fL (7.4-10.4); PLATELET COUNT 197 x10^3/uL (130-400); RED BLOOD COUNT 4.42 x10^6/uL (4.38-5.82); RED CELL DISTRIBUTION WIDTH 16.5 % (9.4-14.8)
[2020-09-23 03:52] LABS: BILIRUBIN,TOTAL 0.5 mg/dL (0.2-1.0)
[2020-09-23 04:04] LABS: MD YES
[2020-09-23 04:17] LABS: BAND#(MANUAL) 0.43 x10^3/uL; BANDS%(MANUAL) 3 % (0-7); LYMPH#(MANUAL) 1.87 x10^3/uL (1-3.4); LYMPHS% (MANUAL) 13 % (22-44); METAMYELOCYTES# (MANUAL) 0.72 x10^3/uL (0-0); METAMYELOCYTES% (MANUAL) 5 % (0-1); MONOS#(MANUAL) 0.58 x10^3/uL (0.3-2.7); MONOS% (MANUAL) 4 % (2-9); MYELOCYTES# (MANUAL) 0.14 x10^3/uL (0-0); MYELOCYTES% (MANUAL) 1 % (0-0); SEG#(MANUAL) 10.66 x10^3/uL (1.8-6.8); SEGS% (MANUAL) 74 % (42-75)
[2020-09-23 04:18] LABS: <PLATELET ESTIMATE> ADEQUATE; ANISOCYTOSIS 1+; OVALOCYTES 1+; PMNS WITH VACUOLES 1+; POLYCHROMASIA 1+; TEAR DROPS 1+
[2020-09-23 04:19] LABS: LARGE PLATELETS 1+
[2020-09-23 07:33] LABS: ANION GAP 7 mmol/L (5-15); CALCIUM 8.8 mg/dL (8.5-10.1); CHLORIDE 118 mmol/L (98-107); CREATININE 4.04 mg/dL (0.7-1.3)
[2020-09-23] MEDS: MAGNESIUM HYDROXIDE 8%, 30ML UDC PO SCH ×2 (08:19→19:52)
[2020-09-23] MEDS: ZINC SULFATE 220 MG CAPSULE PO SCH (08:19)
[2020-09-23] MEDS: CHOLECALCIFEROL 5,000u TAB PO SCH (08:19)
[2020-09-23] MEDS: ASCORBIC ACID 500 MG TABLET PO SCH (08:19)
[2020-09-23] MEDS: LINEZOLID 600 MG TABLET PO SCH ×2 (08:19→19:52)
[2020-09-23] MEDS: THIAMINE 100MG TABLET PO SCH (08:19)
[2020-09-23] MEDS: PANTOPRAZOLE 40 MG IV IV SCH (08:19)
[2020-09-23] MEDS ORDERED: PHENYLEPHRINE 50 MG in SODIUM CHLORIDE 0.9% 245 ML IV PRN (08:30)
[2020-09-23] MEDS: SODIUM CHLORIDE FLUSH 10ML SYR IVF SCH ×2 (09:00→19:53)
[2020-09-23] MEDS: REGULAR INSULIN 100 UNITS in SODIUM CHLORIDE 0.9% 99 ML IV PRN ×2 (09:03→17:28)
[2020-09-23] MEDS: MEROPENEM 1 GM in SODIUM CHLORIDE 0.9% 100 ML IV SCH ×2 (09:11→21:17)
[2020-09-23] MEDS: METHYLNALTREXONE 12 MG/0.6 ML SYR SQ SCH (11:14)
[2020-09-23] MEDS: ENOXAPARIN 30 MG/0.3 ML SQ SCH (14:10)
[2020-09-23] MEDS: PHENYLEPHRINE 100 MG in SODIUM CHLORIDE 0.9% 240 ML IV PRN ×2 (18:11→22:36)
[2020-09-24] MEDS ORDERED: PROPOFOL 100 ML ONE ×2 (02:09→04:30)
[2020-09-24] MEDS: PROPOFOL 100 ML IV PRN ×4 (02:13→18:19)
[2020-09-24] MEDS: REGULAR INSULIN 100 UNITS in SODIUM CHLORIDE 0.9% 99 ML IV PRN (03:21)
[2020-09-24] MEDS: PHENYLEPHRINE 100 MG in SODIUM CHLORIDE 0.9% 240 ML IV PRN ×5 (04:16→23:41)
[2020-09-24] MEDS: ACETAMINOPHEN 650 MG/20.3 ML UDC PO PRN ×3 (04:16→20:20)
[2020-09-24 05:36] LABS: MEAN CORPUSCULAR HEMOGLOBIN 27.5 pg (27.5-34.5); MEAN CORPUSCULAR HGB CONC 31.5 g/dL (33.2-36.2); MEAN PLATELET VOLUME 12.2 fL (7.4-10.4); PLATELET COUNT 204 x10^3/uL (130-400); RED BLOOD COUNT 4.39 x10^6/uL (4.38-5.82); RED CELL DISTRIBUTION WIDTH 16.8 % (9.4-14.8)
[2020-09-24 05:51] LABS: BILIRUBIN,TOTAL 0.5 mg/dL (0.2-1.0)
[2020-09-24 06:15] LABS: MD YES
[2020-09-24 06:17] LABS: ANISOCYTOSIS 1+; BAND#(MANUAL) 0.47 x10^3/uL; BANDS%(MANUAL) 3 % (0-7); EOS#(MANUAL) 0.16 x10^3/uL (0.0-0.4); EOS% (MANUAL) 1 % (1-7); LYMPH#(MANUAL) 2.36 x10^3/uL (1-3.4); LYMPHS% (MANUAL) 15 % (22-44); METAMYELOCYTES# (MANUAL) 0.16 x10^3/uL (0-0); METAMYELOCYTES% (MANUAL) 1 % (0-1); MONOS#(MANUAL) 0.31 x10^3/uL (0.3-2.7); MONOS% (MANUAL) 2 % (2-9); MYELOCYTES# (MANUAL) 0.16 x10^3/uL (0-0); MYELOCYTES% (MANUAL) 1 % (0-0); SEG#(MANUAL) 12.09 x10^3/uL (1.8-6.8); SEGS% (MANUAL) 77 % (42-75)
[2020-09-24 06:18] LABS: <PLATELET ESTIMATE> ADEQUATE; GIANT PLATELETS 1+; LARGE PLATELETS 1+; OVALOCYTES 1+; POLYCHROMASIA 1+; TEAR DROPS 1+
[2020-09-24 06:19] LABS: ANION GAP 6 mmol/L (5-15); CALCIUM 8.9 mg/dL (8.5-10.1); CHLORIDE 120 mmol/L (98-107); CREATININE 4.97 mg/dL (0.7-1.3)
[2020-09-24] MEDS ORDERED: SODIUM ZIRCONIUM CYCLOSILICATE 10 GM PO ONE (07:00)
[2020-09-24] MEDS: LINEZOLID 600 MG TABLET PO SCH ×2 (09:17→20:19)
[2020-09-24] MEDS: MEROPENEM 1 GM in SODIUM CHLORIDE 0.9% 100 ML IV SCH ×2 (09:17→20:38)
[2020-09-24] MEDS: SODIUM CHLORIDE FLUSH 10ML SYR IVF SCH ×2 (09:17→20:19)
[2020-09-24] MEDS: PANTOPRAZOLE 40 MG IV IV SCH (09:17)
[2020-09-24] MEDS ORDERED: PROPOFOL 50 ML ONE ×3 (09:47→10:55)
--- NOTE | 2020-09-24 11:19 | NUR ---
Vital HP at 10 ml/hr, trickle feeds only Addendum: 09/24/20 at [address] Amended: Links added.
[2020-09-24] MEDS: ENOXAPARIN 30 MG/0.3 ML SQ SCH (13:55)
[2020-09-24 15:19] LABS: MICROSCOPIC INDICATED
[2020-09-25] MEDS ORDERED: ACETAMINOPHEN 650 MG SUPP ONE (02:40)
[2020-09-25] MEDS ORDERED: ACETAMINOPHEN 650 MG SUPP PR PRN (03:00)
[2020-09-25] MEDS: PHENYLEPHRINE 100 MG in SODIUM CHLORIDE 0.9% 240 ML IV PRN ×4 (03:58→14:09)
[2020-09-25] MEDS: REGULAR INSULIN 100 UNITS in SODIUM CHLORIDE 0.9% 99 ML IV PRN (04:07)
[2020-09-25 04:14] LABS: MEAN CORPUSCULAR HEMOGLOBIN 27.6 pg (27.5-34.5); MEAN CORPUSCULAR HGB CONC 31.2 g/dL (33.2-36.2); MEAN PLATELET VOLUME 11.9 fL (7.4-10.4); PLATELET COUNT 165 x10^3/uL (130-400); RED BLOOD COUNT 4.41 x10^6/uL (4.38-5.82); RED CELL DISTRIBUTION WIDTH 16.6 % (9.4-14.8)
[2020-09-25 04:27] LABS: ALBUMIN 1.3 g/dL (3.4-5.0); ANION GAP 8 mmol/L (5-15); CALCIUM 8.2 mg/dL (8.5-10.1); CHLORIDE 115 mmol/L (98-107)
[2020-09-25 04:39] LABS: MD YES
[2020-09-25 04:41] LABS: CREATININE 6.98 mg/dL (0.7-1.3)
[2020-09-25 04:42] LABS: ANISOCYTOSIS 1+; BAND#(MANUAL) 0.18 x10^3/uL; BANDS%(MANUAL) 1 % (0-7); BASOS#(MANUAL) 0.18 x10^3/uL (0-0.1); BASOS% (MANUAL) 1 % (0-1); BILIRUBIN,TOTAL 0.7 mg/dL (0.2-1.0); LYMPH#(MANUAL) 4.96 x10^3/uL (1-3.4); LYMPHS% (MANUAL) 28 % (22-44); MONOS#(MANUAL) 0.89 x10^3/uL (0.3-2.7); MONOS% (MANUAL) 5 % (2-9); OVALOCYTES 1+; POLYCHROMASIA 1+; SEG#(MANUAL) 11.51 x10^3/uL (1.8-6.8); SEGS% (MANUAL) 65 % (42-75); TRIGLYCERIDES 395 mg/dL (50-200)
[2020-09-25 04:43] LABS: <PLATELET ESTIMATE> ADEQUATE; GIANT PLATELETS 1+; LARGE PLATELETS 1+
[2020-09-25] MEDS ORDERED: INSULIN REGULAR 100 UNITS/ML, 3ML VIAL ONE (06:21)
[2020-09-25] MEDS ORDERED: CALCIUM GLUCONATE 4.6 MEQ in SODIUM CHLORIDE 0.9% 100 ML IV ONE (06:30)
[2020-09-25] MEDS ORDERED: SODIUM ZIRCONIUM CYCLOSILICATE 10 GM PO ONE (06:30)
[2020-09-25] MEDS ORDERED: INSULIN REGULAR 100 UNITS/ML, 3ML VIAL IVPush ONE (06:30)
[2020-09-25] MEDS: PANTOPRAZOLE 40 MG IV IV SCH (07:24)
[2020-09-25] MEDS: LINEZOLID 600 MG TABLET PO SCH (07:24)
[2020-09-25] MEDS: SODIUM CHLORIDE FLUSH 10ML SYR IVF SCH (07:24)
[2020-09-25] MEDS: METHYLNALTREXONE 12 MG/0.6 ML SYR SQ SCH (11:00)
[2020-09-25] MEDS: MEROPENEM 1 GM in SODIUM CHLORIDE 0.9% 100 ML IV SCH (11:49)
[2020-09-25] MEDS: ENOXAPARIN 30 MG/0.3 ML SQ SCH (12:21)
[2020-09-25] MEDS: NOREPINEPHRINE 8 MG in SODIUM CHLORIDE 0.9% 242 ML IV PRN (12:58)
[2020-09-25] MEDS: NOREPINEPHRINE 32 MG in SODIUM CHLORIDE 0.9% 218 ML IV PRN ×2 (14:09→17:50)
[2020-09-25] MEDS ORDERED: VASOPRESSIN 20 UNIT in SODIUM CHLORIDE 0.9% 99 ML IV PRN (16:00)
== END 2020-09-25 22:17 | disposition expired | DRG 720 ==
LOC: SUATTDRO 15:58 → ED 16:12 → CCU 16:23
PROVIDERS: ADMIT Internal Medicine; ATTEND Internal Medicine
PROC: 02HV33Z Insertion of Infusion Device into Superior Vena Cava, Percutaneous Approach (ICD-10-PCS; 2020-09-13)
PROC: 5A1955Z Respiratory Ventilation, Greater than 96 Consecutive Hours (ICD-10-PCS; 2020-09-13)
PROC: 0BH17EZ Insertion of Endotracheal Airway into Trachea, Via Natural or Artificial Opening (ICD-10-PCS; 2020-09-13)
PROC: XW033E5 Introduction of Remdesivir Anti-infective into Peripheral Vein, Percutaneous Approach, New Technology Group 5 (ICD-10-PCS; 2020-09-16)
PROC: 0T9B70Z Drainage of Bladder with Drainage Device, Via Natural or Artificial Opening (ICD-10-PCS; principal; 2020-09-24)
PROC: 02HV33Z Insertion of Infusion Device into Superior Vena Cava, Percutaneous Approach (ICD-10-PCS; 2020-09-24)
PROC: B548ZZA Ultrasonography of Superior Vena Cava, Guidance (ICD-10-PCS; 2020-09-24)
PROC: 5A1D70Z Performance of Urinary Filtration, Intermittent, Less than 6 Hours Per Day (ICD-10-PCS; 2020-09-24)
DX: A41.89 Other specified sepsis (principal); E11.22 Type 2 diabetes mellitus with diabetic chronic kidney disease; E11.65 Type 2 diabetes mellitus with hyperglycemia; E66.01 Morbid (severe) obesity due to excess calories; E87.0 Hyperosmolality and hypernatremia; E87.1 Hypo-osmolality and hyponatremia; E87.5 Hyperkalemia; E87.70 Fluid overload, unspecified; E88.09 Other disorders of plasma-protein metabolism, not elsewhere classified; G47.33 Obstructive sleep apnea (adult) (pediatric); I12.9 Hypertensive chronic kidney disease with stage 1 through stage 4 chronic kidney disease, or unspecified chronic kidney disease; I46.9 Cardiac arrest, cause unspecified; J12.89 Other viral pneumonia; J96.01 Acute respiratory failure with hypoxia; K59.00 Constipation, unspecified; N17.0 Acute kidney failure with tubular necrosis; N18.30 Chronic kidney disease, stage 3 unspecified; R65.21 Severe sepsis with septic shock; U07.1 COVID-19; Z66 Do not resuscitate; Z79.4 Long term (current) use of insulin; Z85.3 Personal history of malignant neoplasm of breast; Z90.13 Acquired absence of bilateral breasts and nipples; Z99.11 Dependence on respirator [ventilator] status; Z68.44 Body mass index [BMI] 60.0-69.9, adult
CPT/HCPCS: 31500; 36415; 36556; 36600; 51702; 71045; 74018; 76770; 76937; 80048; 80053; 80069; 80074; 81001; 82043; 82247; 82533; 82570; 82728; 82803; 82962; 83605; 83615; 83735; 84145; 84156; 84478; 84550; 85025; 85049; 85379; 85384; 85520; 85610; 85730; 86140; 87040; 87070; 87081; 87205; 87400; 90935; 93005; 93306; 94002; 94003; 94640; 96361; 96365; 96375; 99291; 99292; G0378; J0456; J0610; J0696; J1100; J1644; J1650; J1815; J1940; J2185; J2704; J3010; J7030; J7060; C9113; J0330; J1642; J2370; J7050; U0003